=== PATIENT | female | born 1935 | race Caucasian/White ===

== ENCOUNTER 2016-12-02 20:11 | Emergency (ER) | payer OTHER ==
[~2016-12-02] VITALS: Ht 170.2 cm; Wt 72.6 kg
[2016-12-02 20:21] VITALS: BP 106/72
== END 2016-12-02 22:41 | disposition left against medical advice (07) ==
LOC: EDBD 20:11 → ER 20:11
DX: M79.605 Pain in left leg (principal); M79.604 Pain in right leg; Z53.21 Procedure and treatment not carried out due to patient leaving prior to being seen by health care provider